=== PATIENT | male | born 1980 | race Caucasian/White ===

== ENCOUNTER 2017-02-16 02:27 | Emergency (ER) | payer OTHER ==
[~2017-02-16] VITALS: Ht 182.9 cm; Wt 79.4 kg
[2017-02-16 02:30] VITALS: BP 126/88
[2017-02-16] MEDS ORDERED: ACETAMINOPHEN ES 500 MG TABLET ONE (05:19)
[2017-02-16] MEDS ORDERED: ACETAMINOPHEN 325 MG TABLET PO ONE (05:30)
== END 2017-02-16 05:29 | disposition home or self-care (01) ==
LOC: ER 02:37
DX: J11.1 Influenza due to unidentified influenza virus with other respiratory manifestations (principal)
CPT/HCPCS: 99282; A4606; Z7610